=== PATIENT | male | born 1990 | race Caucasian/White ===

== ENCOUNTER 2019-04-05 05:29 | Inpatient (IN) | payer OTHER ==
[~2019-04-05] VITALS: Ht 182.9 cm; Wt 100.3 kg
[2019-04-06 12:44] VITALS: BP 133/82
== END 2019-04-06 11:23 | disposition home or self-care (01) | DRG 473 ==
LOC: ORIP 05:29 → DCLOUNGE 05:29 → UNDOADMIN 05:29 → 4NOR 13:31 → ORIP 13:31 → 4NOR 04-06 14:46 → DCLOUNGE 04-06 14:46
PROVIDERS: ADMIT Orthopaedic Surgery Orthopaedic Surgery of the Spine; ATTEND Orthopaedic Surgery Orthopaedic Surgery of the Spine
PROC: 0PP304Z Removal of Internal Fixation Device from Cervical Vertebra, Open Approach (ICD-10-PCS; principal; 2019-04-05)
PROC: 0RG10A0 Fusion of Cervical Vertebral Joint with Interbody Fusion Device, Anterior Approach, Anterior Column, Open Approach (ICD-10-PCS; 2019-04-05)
PROC: 4A11X4G Monitoring of Peripheral Nervous Electrical Activity, Intraoperative, External Approach (ICD-10-PCS; 2019-04-05)
DX: M48.02 Spinal stenosis, cervical region (principal); M54.12 Radiculopathy, cervical region
CPT/HCPCS: 72040; J3260; 95938; 95941; C1713; G0378; J0171; J0690; J1100; J1170; J2001; J2250; J2405; J2704; J2710; J3010; J3301; J3370; C1762; J0330; J2800; J3480; J7120